=== PATIENT | male | born 1950 | race Caucasian/White ===

== ENCOUNTER 2021-09-09 10:26 | Day surgery (SDC) | payer MEDICARE ==
[2021-09-09] MEDS ORDERED: Sodium Chloride 0.9% 10 ML FLUSH Syringe IJ ONE (10:27)
[2021-09-09] MEDS ORDERED: Depo-Medrol 40 MG/ML IM ONE (10:27)
[2021-09-09] MEDS ORDERED: Lactated Ringers 1,000 ML IV ONE (12:16)
[2021-09-09] MEDS ORDERED: DIPRIVAN 200 MG/20 ML IV ONE (12:54)
[2021-09-09] MEDS ORDERED: MORPHINE SULFATE 2 MG INJ ONE (13:18)
--- NOTE | 2021-09-09 14:37 | XRAY ---
Indication: Left L4-S1 transforaminal SHANT. Intraoperative fluoroscopy provided for 48 seconds. 3 digital spot images submitted for interpretation demonstrates posterior needle tips projecting over the expected left L4 and L5 nerve roots. Small amount of contrast injected for needle tip placement. Correlate with intraoperative findings/report.
--- NOTE | 2021-09-09 14:41 | XRAY ---
48 seconds fluoroscopy time in surgery for left L4-S1 transforaminal SHANT.
== END 2021-09-09 13:25 | disposition home or self-care (01) ==
LOC: SDC-PAIN 10:26
PROVIDERS: ATTEND Psychiatry & Neurology Pain Medicine
DX: M54.16 Radiculopathy, lumbar region (principal); I10 Essential (primary) hypertension; Z79.899 Other long term (current) drug therapy
CPT/HCPCS: 64483; 64484; 72100; 77003; J1030; J2270; J2704; Q9966

== ENCOUNTER 2021-09-23 11:22 | Day surgery (SDC) | payer MEDICARE ==
[2021-09-23] MEDS ORDERED: Decadron 4 MG INJ IV ONE (14:20)
[2021-09-23] MEDS ORDERED: Xylocaine 1% Vial 30 ML PF IJ ONE (14:20)
[2021-09-23] MEDS ORDERED: DIPRIVAN 200 MG/20 ML IV ONE (14:46)
[2021-09-23] MEDS ORDERED: Lactated Ringers 1,000 ML IV ONE (15:32)
--- NOTE | 2021-09-23 16:29 | XRAY ---
Indication: Left piriformis injection. Intraoperative fluoroscopy provided for 43 seconds. Single digital spot image submitted for interpretation demonstrates posterior needle tip projecting over the expected left piriformis muscle. Small amount of contrast injected for needle tip placement. Correlate with intraoperative findings/report.
--- NOTE | 2021-09-23 16:30 | XRAY ---
43 seconds of fluoroscopy was used in surgery for a left piriformis injection.
== END 2021-09-23 15:13 | disposition home or self-care (01) ==
LOC: SDC-PAIN 11:22
PROVIDERS: ATTEND Psychiatry & Neurology Pain Medicine
DX: M79.18 Myalgia, other site (principal); Z79.899 Other long term (current) drug therapy
CPT/HCPCS: 20552; 72020; 77002; 99100; J1100; J2001; J2704; Q9966